=== PATIENT | female | born 1995 | race Caucasian/White ===

== ENCOUNTER 2017-06-10 09:43 | Emergency (ER) | payer OTHER ==
[2017-06-10 09:56] VITALS: BP 116/77
--- NOTE | 2017-06-10 10:48 | UC ---
Sylvia Marina Alfonso, scribed for Mounika Owens MD on 06/10/17 at 1014 . Cardiac HPI - HPI Summary HPI Summary: This patient is a 22 year old F presenting to [facility] with a chief complaint of chest troubles for a year and not sure if it is physical or mental since a year ago, worse since a week ago. She gets this pain every other day and the pain lasts a few minutes. The CP radiates to her left shoulder. She reports when I crack my back I crack my sternum. This makes pain worse. Pain increased with movement of arms and directl palpation. The CP does not wake her up from sleep. She denies recent chest or head trauma. The patient rates the quick and sharp pain 3/10 in severity. Symptoms aggravated by deep breaths, movement and palpation. Pt feels when reaches for objects. No analgesia. No SOB. Patient reports recent stress, chills, and sinus pressure. Patient denies fever, cough, ear pain, sore throat, belching, and a bad taste in her mouth. LMP currently in . She denies recent sick contacts. Pt skateboards, but denies recent fall. Patients medication reviewed this visit. - History of Current Complaint Chief Complaint: UCChestPain Stated Complaint: CHEST CONGESTION Time Seen by Provider: 06/10/17 10:06 Hx Obtained From: Patient Hx Last Menstrual Period: now Onset/Duration: Sudden Onset, Resolved, Worse Since - week, Other - Lasting 1 year Timing: Constant Current Severity: Mild Pain Intensity: 3 - /10 Character: Sharp/Stabbing Aggravating Factor(s): Deep Breaths Alleviating Factor(s): Spontaneous Resolution - Allergy/Home Medications Allergies/Adverse Reactions: Allergies Allergy/AdvReac Type Severity Reaction Status Date / Time No Known Allergies Allergy Verified 05/09/12 20:32 PMH/Surg Hx/FS Hx/Imm Hx Previously Healthy: No Psychological History: Anxiety - Surgical History Surgical History: None - Family History Known Family History: Positive: Other - Mother had a heart transplant; HLD father - Social History Occupation: Employed Full-time - [employer] shop Lives: With Family Alcohol Use: None Substance Use Type: None Smoking Status (MU): Light Every Day Tobacco Smoker - Immunization History Most Recent Influenza Vaccination: none Vaccination Up to Date: Yes Review of Systems Constitutional: Other - Negative fever ENT: Other - Sinus pressure; negative ear pain, sore throat, belching, and a bad taste in her mouth Respiratory: Negative, Other - Negative cough Cardiovascular: Chest Pain Psychological: Other - recent stress All Other Systems Reviewed And Are Negative: Yes Physical Exam Triage Information Reviewed: Yes Appearance: Well-Appearing, No Pain Distress, Well-Nourished Vital Signs: Initial Vital Signs Temp 98.6 F 06/10/17 09:48 Pulse 70 06/10/17 09:48 Resp 18 06/10/17 09:48 BP 116/77 06/10/17 09:48 Pulse Ox 99 06/10/17 09:48 Vital Signs Reviewed: Yes Eye Exam: Normal Eyes: Positive: Conjunctiva Clear ENT Exam: Normal ENT: Positive: Normal ENT inspection, Hearing grossly normal, Pharynx normal, TMs normal Dental Exam: Normal Neck exam: Normal Neck: Positive: Supple, Nontender, No Lymphadenopathy Respiratory Exam: Normal Respiratory: Positive: Lungs clear, Normal breath sounds, No respiratory distress, No accessory muscle use, Other: - + TTP left sternal border. Pain increass with movemet,d irect palp along 4-5 rib no crepitus. Negative: Chest non-tender Cardiovascular Exam: Normal Cardiovascular: Positive: RRR, No Murmur, Pulses Normal Abdominal Exam: Normal Abdomen Description: Positive: Nontender, No Organomegaly, Soft Bowel Sounds: Positive: Present Musculoskeletal: Positive: Other: - pain reproducible with flex/ext elbows, external rotation of shoulder Neurological Exam: Normal Neurological: Positive: Alert Psychological Exam: Normal Skin Exam: Normal Diagnostics - Laboratory Diagnostic Studies Completed/Ordered: CXR reveals, per radiologist, No active cardiopulmonary disease is noted. - EKG Cardiac Rate: NL Cardiac Rhythm: Sinus: Normal - 1006. 76 BPM. V2 inverted T-wave. No ST changes. ST Segment: Normal - Assessment/Plan Course Of Treatment: Pt with pain along left sternal border intermittent x 1 month. Pain increases with ROM and direct palp. Will check cxr. recommend heat, anti-inflamm. physician referral. return precautions. pt comfortable and landen greement with plan - Clinical Impression Provider Diagnoses: costochondritis Discharge - Discharge Plan Condition: Stable Disposition: HOME Patient Education Materials: Costochondritis (ED) Forms: *Work Release Referrals: Carlos Hernandes MD [Primary Care Provider] - Additional Instructions: - Stay well hydrated. - Okay to alternate ibuprofen (Advil, Motrin) and tylenol every 3 hours for pain - Apply heat to your chest wall, 2-3 times a day - Slow, gentle stretching exercises is important - you have been given the contact information for the physician referral center. It is recommend to contact to establish with a new primary care provider - Contact your doctor, call 911 or return with questions or concerns The documentation as recorded by the Sylvia angulo Alfonso accurately reflects the service I personally performed and the decisions made by me, Mounika Owens MD.
--- NOTE | 2017-06-10 11:13 | RAD ---
Indication: Anterior chest wall pain. 2 views of the chest including dual energy PA views demonstrate no femoral shift. Heart is of normal size and configuration. Lung snider show no pleural fluid, pneumonia or pneumothorax. IMPRESSION: No active cardiopulmonary disease is noted.
== END 2017-06-10 11:46 | disposition home or self-care (01) ==
LOC: UCEAST 09:43
DX: M94.0 Chondrocostal junction syndrome [Tietze] (principal); Z72.0 Tobacco use
CPT/HCPCS: 71020; 93005; 99211; G0463